=== PATIENT | female | born 1965 | race Caucasian/White ===

== ENCOUNTER 2021-12-10 15:43 | Emergency (ER) | payer OTHER, SELFPAY ==
--- NOTE | ~2021-12-10 | XR_ITS ---
EXAM: XR knee RT 3V HISTORY: PAIN COMPARISON: None available FINDINGS: Normal mineralization. Moderate bilateral medial joint space narrowing. Bilateral tricompa rtmental osteophytosis. Large left and moderate volume right knee joint effusions. No fracture or dis location. No lytic or blastic lesions. IMPRESSION: Moderate bilateral knee osteoarthritis, more severe in the left knee. Large left and moderate right k nee joint effusions. Reviewed, dictated and finalized at location K. IMPRESSION: Moderate bilateral knee osteoarthritis, more severe in the left knee. Large lef t and moderate right knee joint effusions.
--- NOTE | ~2021-12-10 | XR_ITS ---
EXAM: XR knee LT 3V HISTORY: PAIN COMPARISON: None available FINDINGS: Normal mineralization. Moderate bilateral medial joint space narrowing. Bilateral tricompa rtmental osteophytosis. Large left and moderate volume right knee joint effusions. No fracture or dis location. No lytic or blastic lesions. IMPRESSION: Moderate bilateral knee osteoarthritis, more severe in the left knee. Large left and moderate right k nee joint effusions. Reviewed, dictated and finalized at location K. IMPRESSION: Moderate bilateral knee osteoarthritis, more severe in the left knee. Large lef t and moderate right knee joint effusions.
[2021-12-10 16:07] VITALS: BP 132/90; PULSE 67; RESP 16; TEMP 36.2; O2SAT 97
--- NOTE | 2021-12-10 18:35 | ED.EXTPRO ---
HPI - Extremity Problem General Chief complaint: Extremity Problem,Nontraumatic Stated complaint: bilateral swollen knees Time Seen by Provider: 12/10/21 18:10 Source: patient Mode of arrival: ambulatory Limitations: no limitations History of Present Illness HPI Narrative: This is a 56 year old female who presents for evaluation of bilateral knee swelling. Patient reports history of arthritis. She developed left knee pain 1 week ago. Shortly after, she also developed right knee pain. She has been having swelling and pain. She reports she is extremely active and her knees are worse with movement. She denies history of gout, RA. She takes ibuprofen twice a day for years. She reports increased warmth. She denies any injury Related Data Home Medications Medication Instructions Recorded Confirmed metoprolol tartrate 12/10/21 12/10/21 Allergies Allergy/AdvReac Type Severity Reaction Status Date / Time No Known Allergies Allergy Verified 12/10/21 17:36 Review of Systems Review of Systems: All systems reviewed & are unremarkable except as noted in HPI and below PMFSH Past Medical History Medical History (Updated 12/10/21 @ 18:56 by Mary Childs MD) Chronic back pain Hypertension Peripheral neuropathy Social History Social History (Updated 12/10/21 @ 18:39 by Mary Childs MD) Smoking status: Former smoker Exam Const: General: alert Nutritional Appearance: obese Orientation/consciousness: patient oriented x3 Eyes: EOM: EOMs intact bilaterally Resp: Effort & Inspection: normal respiratory effort Skin: General skin exam: normal color Rashes: no rashes Neuro: General: patient oriented x3, moves all extremities and CN's II-XI intact bilaterally Extrem: Other: patient has FROM bilateral knee. There is mild bilateral knee swelling, no erythema; Psych: Mental Status: mental status grossly normal Affect: normal affect Course Reevaluation(s) Reevaluation #1: I discussed with patient xray shows osteoarthritis with joint effusions that are worse on the left. Unlikely septic arthritis. I offered to perform left knee arthrocentensis to evaluate fluids. She may need evaluation of some form of arthritis. Patient declined arthrocentesis because she does not want to stay any longer. Date: 12/10/21 Time: 18:40 Vital Signs Vital signs: Vital Signs Temperature 97.2 F L 12/10/21 16:07 Pulse Rate 67 04/04/22 16:07 Respiratory Rate 16 12/10/21 16:07 Blood Pressure 132/90 12/10/21 16:07 Pulse Oximetry 97 12/10/21 16:07 Temperature 97.2 F L 12/10/21 16:07 Pulse Rate 85 12/10/21 19:10 Respiratory Rate 17 12/10/21 19:10 Blood Pressure 144/86 H 12/10/21 19:10 Pulse Oximetry 97 12/10/21 19:10 MDM - Extremity (Nontraumatic) Imaging Data Attestation: I personally reviewed and interpreted this imaging study as follows: Radiologist's impression: ITS Impressions Knee X-Ray 12/10/21 17:58 IMPRESSION: Moderate bilateral knee osteoarthritis, more severe in the left knee. Large left and moderate right knee joint effusions. Knee X-Ray 12/10/21 18:03 IMPRESSION: Moderate bilateral knee osteoarthritis, more severe in the left knee. Large left and moderate right knee joint effusions. Discharge Plan Discharge Clinical Impression: Osteoarthritis of knees, bilateral Qualifiers: Osteoarthritis type: unspecified Qualified Code(s): M17.0 - Bilateral primary osteoarthritis of knee Patient Disposition: Home, Self-Care Condition: Stable Instructions: Antibiotic Form, Osteoarthritis (ED), Swollen Knee Joint (ED) Additional Instructions: You have arthritis in both knees that is causing your swelling. You should wrap both knees with lyn bandage /knee brace. Rest to allow your inflammation to resolve. Keep legs elevated when possible. Apply ice to knee to help with swelling. Follow up with your primary care physician. REtur
[2021-12-10] MEDS: KETOROLAC (*BKC) 60 MG/2 ML VIAL IM (18:49)
[2021-12-10] MEDS: ONDANSETRON HCL ODT 4 MG TABLET PO (18:49)
[2021-12-10] MEDS: HYDROcodone/acetaminophen (*CRX) 5-325 MG TABLET 1 TAB PO (18:49)
[2021-12-10 19:10] VITALS: BP 144/86; PULSE 85; RESP 17; O2SAT 97
== END 2021-12-10 19:11 | disposition home or self-care (01) ==
PROVIDERS: Emergency Provider General Practice; PCP Nurse Practitioner Family
DX: M17.0 Bilateral primary osteoarthritis of knee (principal); G89.29 Other chronic pain; I10 Essential (primary) hypertension; G62.9 Polyneuropathy, unspecified; Z87.891 Personal history of nicotine dependence
CPT/HCPCS: 73562; 96372; 99284; A9270; J1885

== ENCOUNTER 2021-12-27 17:31 | Emergency (ER) | payer OTHER, SELFPAY ==
--- NOTE | 2021-12-27 17:43 | ED.EXTPRO ---
HPI - Extremity Problem General Chief complaint: Extremity Problem,Nontraumatic Stated complaint: Swollen right Knee Time Seen by Provider: 12/27/21 17:43 Source: patient Mode of arrival: ambulatory Limitations: no limitations History of Present Illness HPI Narrative: Ms. Quinonez is a 56-year-old female patient presenting to the clinic today with complaints of right knee swelling x1 week. She was seen on the fourth in the ED for left knee swelling and had x-rays completed of both knees and it showed that she had osteoarthritis and a knee effusion to the left knee. She reports since finishing her prednisone that her right knee has been swollen and more painful. This has been going on for approximately 1 week and becoming more painful and she is not able to tolerate it any longer. She has been resting icing and taking ibuprofen for this. She reports that she is to see her PCP on the of this month however she does not feel she can make it that long due to the pain. States that her Medicare part D will not allow anyone else by her PCP to give her an orthopedic referral. Related Data Home Medications Medication Instructions Recorded Confirmed metoprolol tartrate 25 mg PO DAILY 12/10/21 12/27/21 Allergies Allergy/AdvReac Type Severity Reaction Status Date / Time No Known Allergies Allergy Verified 12/27/21 17:34 Review of Systems Review of Systems: Pertinent positives per HPI. Patient denies any fever, chills, rash, headache, visual changes, dizziness, cough, runny nose, sore throat, shortness of breath, chest pain, palpitations, nausea, vomiting, diarrhea, constipation, abdominal pain, or any urinary issues. PMFSH Past Medical History Medical History Chronic back pain Hypertension Peripheral neuropathy Social History Social History Smoking status: Former smoker Comments At the time of my signature, I reviewed and agree with the nursing past medical, surgical, social, and family history. There is no relevant family history pertinent to the patient complaint. Exam Narrative: General: Well-developed, well nourished, in no apparent distress Head: Normocephalic, atraumatic. Cardio: Regular rate and rhythm, s1 and s2 normal, no murmur appreciated. Resp: Clear to auscultation bilaterally, no rhonchi, rales, wheezing or rubs. Musculoskeletal: No deformity, tender to palpation over entire right knee joint as well as superiorly and inferiorly, has a wave appearance when tapping the knee, range of motion limited due to swelling and pain, peripheral pulse strong, no edema, no cyanosis, normal gait and station Course Course Emergency Course: Portions of this record may have been created with voice recognition software. Level of Care: Express Care Visit Vital Signs Vital signs: Vital signs reviewed Transfer Transfered to: [place] Transfer rationale: Right knee effusion Accepting physician: MALENA Kate Transfer comments: Transfer via private car. MDM - Extremity (Nontraumatic) MDM Narrative Medical decision making narrative: At the time of visit patient is resting comfortably on the exam table. She has right knee swelling and tenderness-pain is radiating to the posterior knee and down and up the leg. I suspect she has a knee effusion however I am unable to tap her knee in the clinic today to help alleviate her pain nor can I order cytology on the fluid. I discussed this with the patient and recommended that she be seen in the ED for reevaluation and a vein arthrocentesis. Patient is agreeable to be sent to the ER. MALENA Kate was notified at [place] [facility] and report was given. Discharge Plan Discharge Clinical Impression: Effusion of right knee Patient Disposition: Acute Care Hospital Condition: Stable Additional Instructions: You were evaluated by the provider
[2021-12-27 17:44] VITALS: BP 175/116; PULSE 98; RESP 16; TEMP 37.1; O2SAT 99
== END 2021-12-27 18:12 | disposition short-term general hospital (02) ==
PROVIDERS: Emergency Provider Nurse Practitioner Family; PCP Nurse Practitioner Family
DX: M25.461 Effusion, right knee (principal); I10 Essential (primary) hypertension; G62.9 Polyneuropathy, unspecified; Z87.891 Personal history of nicotine dependence; M17.12 Unilateral primary osteoarthritis, left knee
CPT/HCPCS: 99213; G0463

== ENCOUNTER 2021-12-27 18:31 | Emergency (ER) | payer OTHER, SELFPAY ==
--- NOTE | ~2021-12-27 | XR_ITS ---
EXAMINATION: XR knee RT min 4V DATE: 12/27/2021 19:04 INDICATION: Right knee pain and swelling TECHNIQUE: Four views of the right knee were obtained. COMPARISON: 12/10/2021 FINDINGS: Alignment is normal. No fracture or osteochondral lesion. There is mild tricompartmental os teoarthritis characterized by tiny marginal osteophytes. There is a large knee joint effusion. Soft t issues are unremarkable. IMPRESSION: 1. Large knee joint effusion without acute osseous abnormality. Reviewed, dictated and finalized at location F.
[2021-12-27 18:42] VITALS: BP 141/111; PULSE 86; RESP 18; TEMP 36.3; O2SAT 97
[2021-12-27 20:00] VITALS: BP 153/103; PULSE 87; RESP 22; O2SAT 97
--- NOTE | 2021-12-27 20:16 | ED.EXTPRO ---
HPI - Extremity Problem General Chief complaint: Extremity Problem,Nontraumatic Stated complaint: knee swelling Time Seen by Provider: 12/27/21 19:56 Source: patient Mode of arrival: ambulatory Limitations: no limitations History of Present Illness HPI Narrative: Patient is a 56-year-old female complaining of right knee swelling and pain that started 1 week ago. Patient states that she had a similar episode last week on her left knee, was given steroids and helped with the swelling. Patient states that she has a history of arthritis of both knees. Patient denies any injury to the knee. Patient denies any calf pain or swelling. Patient denies any right knee redness, fever or chills. Related Data Home Medications Medication Instructions Recorded Confirmed metoprolol tartrate 25 mg PO DAILY 12/10/21 12/27/21 Allergies Allergy/AdvReac Type Severity Reaction Status Date / Time No Known Allergies Allergy Verified 12/27/21 17:34 Review of Systems Review of Systems: All systems reviewed & are unremarkable except as noted in HPI and below Constitutional: Constitutional: Denies body ache(s), Denies chills, Denies excessive sweating, Denies fatigue, Denies fever(s), Denies headache(s), Denies lethargy, Denies malaise, Denies weakness and Denies weight loss Eyes: Eyes: Denies blurry vision, Denies change in vision and Denies loss of vision ENT: Denies dizziness, Denies ear discharge, Denies headache(s), Denies lip swelling, Denies epistaxis, Denies nasal congestion, Denies neck pain, Denies throat swelling and Denies tongue swelling Cardiovascular: Cardiovascular: Denies chest pain, Denies chest pain at rest, Denies chest pain with activity, Denies diaphoresis, Denies rapid heart rate, Denies edema, Denies irregular heart rhythm, Denies lightheadedness, Denies palpitations, Denies dyspnea and Denies dyspnea on exertion Respiratory: Respiratory: Denies chest congestion, Denies cough, Denies hemoptysis, Denies dyspnea and Denies dyspnea on exertion Gastrointestinal: Gastrointestinal: Denies abdominal pain, Denies melena, Denies hematochezia, Denies diarrhea, Denies nausea, Denies vomiting and Denies hematemesis Musculoskeletal: Musculoskeletal: Denies abnormal gait, Denies deformity, Denies limited range of motion, Denies neck pain and Denies numbness Neurologic: Denies Abnormal speech present, Denies abnormal gait, Denies confusion, Denies dizziness, Denies headache(s), Denies focal weakness, Denies loss of vision, Denies numbness, Denies Other visual disturbances, Denies Sensory deficit (Neuro) and Denies weakness Psychiatric: Psychiatric: Denies confusion, Denies depression, Denies auditory hallucinations, Denies homicidal ideation and Denies suicidal ideation Endocrine: Endocrine: Denies cold intolerance, Denies excessive sweating, Denies fatigue, Denies heat intolerance and Denies palpitations Hematologic/Lymphatic: Hematologic/Lymphatic: Denies easy bleeding and Denies easy bruising Allergic/Immunologic: Allergic/Immunologic: Denies lip swelling, Denies throat swelling and Denies tongue swelling PMFSH Past Medical History Medical History Chronic back pain Hypertension Peripheral neuropathy Social History Social History Smoking status: Former smoker Exam Const: General: cooperative, comfortable, no acute distress, well developed, alert and awake; No confusion Nutritional Appearance: obese Orientation/consciousness: oriented to person, oriented to place, oriented to time, patient oriented x3 and No confusion Limitations: no limitations HENMT: Head: normal to inspection, normocephalic and atraumatic Ears: hearing grossly normal bilaterally, TM normal on the right and TM normal on the left General nose exam: Normal external nose present, Normal nares present and No nasal discharge present Face and sinus: n
[2021-12-27] MEDS: HYDROcodone/acetaminophen (*CRX) 5-325 MG TABLET 1 TAB PO (22:44)
[2021-12-27] MEDS: KETOROLAC 30 MG/ML VIAL (*BKC) IM (22:44)
[2021-12-27 23:59] LABS: Source Synovial Fluid Synovial fluid
[2021-12-28] LABS: Appearance Synovial Fluid Clear (Clear); Color Synovial Fluid Yellow (Colorless)
[2021-12-28 00:01] LABS: Lymphocytes Synovial Fluid 4 %; Macrophages Synovial Fluid 46 %; Monocytes Synovial Fluid 26 %; Neutrophils Synovial Fluid 24 % (0-25)
[2021-12-28 00:11] VITALS: BP 156/93; PULSE 86; RESP 19; O2SAT 97
== END 2021-12-28 00:13 | disposition home or self-care (01) ==
PROVIDERS: Emergency Provider Emergency Medicine; PCP Nurse Practitioner Family
DX: M25.461 Effusion, right knee (principal); I10 Essential (primary) hypertension
CPT/HCPCS: 20610; 73564; 87070; 87075; 87205; 89051; 96372; 99283; A9270; J1885

== ENCOUNTER → 2022-04-03 12:29 | Outpatient (CLI) | payer SELFPAY ==
--- NOTE | ~2022-04-03 | MR_ITS ---
EXAMINATION: MR knee RT wo con DATE: 04/03/2022 13:54 INDICATION: Anterior right knee pain TECHNIQUE: Magnetic resonance imaging (MRI) of the right knee was performed without intravenous contr ast. Sequences included axial PD-weighted FS FSE, coronal PD-weighted FSE and PD-weighted FS FSE, sag ittal PD-weighted FSE, and sagittal T2-weighted FS FSE. COMPARISON: X-ray 12/27/2021 FINDINGS: Medial compartment: Apical and oblique undersurface tears of the body, medial meniscus. Medial meniscal displacement. Par rot beak type tear of the posterior horn, medial meniscus, with displacement of the flap. Large area of full-thickness cartilage loss on the weightbearing medial condyle. Moderate osteophytosis. Lateral compartment: Apical tear of the posterior horn, lateral meniscus. Moderate diffuse thinning of cartilage. Mild ost eophytosis. Patellofemoral compartment: Mild diffuse cartilage thinning. Full-thickness focal cartilage defect over the median ridge. Retinac guy intact. Ligaments and tendons: Full-thickness ACL tear. PCL, MCL and LCL are intact. Flexor and extensor tendons are intact. Fluid: Moderate volume joint fluid. Osseous/other: Unremarkable marrow signal. IMPRESSION: 1. Tears of the posterior horn and body of the medial meniscus. 2. Apical tear of the lateral meniscus. 3. Full-thickness ACL tear. 4. Moderate joint effusion. 5. Mild chondromalacia patella. Reviewed, dictated and finalized at location K.
--- NOTE | ~2022-04-03 | MR_ITS ---
EXAMINATION: MR knee LT wo con DATE: 04/03/2022 13:56 INDICATION: Anterior left knee pain TECHNIQUE: Magnetic resonance imaging (MRI) of the left knee was performed without intravenous contra st. Sequences included axial PD-weighted FS FSE, coronal PD-weighted FSE and PD-weighted FS FSE, sagi ttal PD-weighted FSE, and sagittal T2-weighted FS FSE. COMPARISON: X-ray left knee 12/10/2021. FINDINGS: Medial compartment: Focal apical tear of the meniscal body. Diffuse cartilage thinning with a 5-6 mm area of full-thickne ss cartilage loss on the medial condyle. Moderate osteophytosis. Lateral compartment: Meniscus intact. Mild diffuse cartilage thinning. Moderate osteophytosis. Patellofemoral compartment: Full-thickness cartilage signal abnormality in the femoral groove. Patellar cartilage is intact. Mild osteophytosis. Retinacula are intact. Ligaments and tendons: ACL, PCL, MCL, and LCL are intact. Abnormal signal deep to the insertion of the pes anserine tendons. Remaining flexor and extensor tendons are intact. Fluid: Moderate volume joint fluid. Osseous/other: Unremarkable marrow signal. IMPRESSION: 1. Apical tear, medial meniscus. 2. Pes anserine bursitis. 3. Tricompartmental osteoarthritis. 4. Focal full-thickness cartilage loss on the medial condyle. 5. Large joint effusion. Reviewed, dictated and finalized at location K.
== END ==
PROVIDERS: Visit Provider Orthopaedic Surgery
DX: M25.562 Pain in left knee (principal); M25.561 Pain in right knee; S83.222A Peripheral tear of medial meniscus, current injury, left knee, initial encounter; M70.52 Other bursitis of knee, left knee; M17.12 Unilateral primary osteoarthritis, left knee; M25.462 Effusion, left knee; S83.8X2A Sprain of other specified parts of left knee, initial encounter; S83.241A Other tear of medial meniscus, current injury, right knee, initial encounter; S83.281A Other tear of lateral meniscus, current injury, right knee, initial encounter; S83.511A Sprain of anterior cruciate ligament of right knee, initial encounter; M25.461 Effusion, right knee; M94.261 Chondromalacia, right knee
CPT/HCPCS: 99199; 73721

== ENCOUNTER 2023-08-16 10:45 | Emergency (ER) | payer MEDICARE, MEDICAID, SELFPAY ==
[2023-08-16 10:57] VITALS: BP 149/85; PULSE 90; RESP 16; TEMP 36.2; O2SAT 96
--- NOTE | 2023-08-16 11:02 | ED.URI ---
HPI - URI/Sore Throat General Chief Complaint: Upper Respiratory Infection Stated Complaint: Bodyaches/Cough Time Seen by Provider: 08/16/23 11:00 Source: patient Mode of arrival: ambulatory Limitations: no limitations History of Present Illness HPI Narrative: Abby is a 58-year-old female patient presenting to the clinic today with complaints of cough, nasal congestion, body aches, fever, and chills x2 days. States highest fever was 103. MD elicited complaint: fever, cough, nasal congestion and other (Chills and body aches) Related Data Allergies Allergy/AdvReac Type Severity Reaction Status Date / Time No Known Allergies Allergy Verified 08/16/23 10:52 Review of Systems Review of Systems: Pertinent positives per HPI. Patient denies any fever, chills, rash, headache, visual changes, dizziness, cough, shortness of breath, chest pain, palpitations, nausea, vomiting, diarrhea, constipation, abdominal pain, or any urinary issues. PMFSH Past Medical History Medical History Chronic back pain Hypertension Peripheral neuropathy Surgical History Surgical History History of Family History Family History Other Diabetes mellitus Family history of cancer Heart disease Hypertension Social History Social History Smoking status: Former smoker Alcohol intake: never Substance use: never Living arrangements: alone Occupation/Education: unemployed Gender identity (if verbalized by the patient): Female Comments At the time of my signature, I reviewed and agree with the nursing past medical, surgical, social, and family history. There is no relevant family history pertinent to the patient complaint. Exam Narrative: General: Well-developed, well nourished, in no apparent distress Head: Normocephalic, atraumatic Eyes: Pupils equally round and reactive to light bilaterally, EOM intact, sclera and conjunctive clear, no discharge, lids normal Ears: TMs intact and clear, ear canals clear, no drainage, grossly hearing normal. Nose: Nares patent, clear nasal discharge, no inflammation, no sinus tenderness. Mouth: Oral pharynx without lesions or masses, good dentition, MMM. Neck: Supple, trachea midline, no enlargement of anterior or posterior cervical nodes, no thyroid masses or goiter palpable. Cardio: Regular rate and rhythm, s1 and s2 normal, no murmur appreciated. Resp: Faint expiratory wheeze over the right posterior middle lobe, no rhonchi, rales, wheezing or rubs Course Course Emergency Course: Portions of this record may have been created with voice recognition software. Level of Care: Express Care Visit Vital Signs Vital signs: Vital Signs Temperature 36.2 C L 08/16/23 10:57 Pulse Rate 90 08/16/23 10:57 Respiratory Rate 16 08/16/23 10:57 Blood Pressure 149/85 H 08/16/23 10:57 Pulse Oximetry 96 08/16/23 10:57 Oxygen Delivery Room Air 08/16/23 10:57 Temperature 36.2 C L 08/16/23 10:57 Pulse Rate 90 08/16/23 10:57 Respiratory Rate 16 08/16/23 10:57 Blood Pressure 149/85 H 08/16/23 10:57 Pulse Oximetry 96 08/16/23 10:57 Oxygen Delivery Room Air 08/16/23 10:57 Vital signs reviewed MDM - URI/Sore Throat MDM Narrative Medical decision making narrative: At the time of visit patient is resting comfortably on the exam table. Patient appears to be nontoxic. Influenza and COVID testing was performed. Influenza a was positive. Will send in prescription for Tamiflu. Supportive measures were discussed with the patient and they voiced understanding discharge instructions and agrees to treatment plan. Return precautions reviewed Differential Diagnosis Differential diagnosis: Likely upper respiratory infection, ot
== END 2023-08-16 11:10 | disposition home or self-care (01) ==
PROVIDERS: Emergency Provider Nurse Practitioner Family
DX: J10.1 Influenza due to other identified influenza virus with other respiratory manifestations (principal); Z20.822 Contact with and (suspected) exposure to COVID-19; Z87.891 Personal history of nicotine dependence; I10 Essential (primary) hypertension; G62.9 Polyneuropathy, unspecified
CPT/HCPCS: 87426; 87804; 99213; C9803; G0463

== ENCOUNTER 2023-12-01 16:33 | Emergency (ER) | payer MEDICARE, MEDICAID, SELFPAY ==
--- NOTE | 2023-12-01 16:51 | ED.GENADULT ---
HPI - General Adult General Chief complaint: Dizziness Stated complaint: Dizziness/Weakness/Fatigue Time Seen by Provider: 12/01/23 16:56 Mode of arrival: ambulatory Limitations: no limitations History of Present Illness HPI narrative: 58-year-old female presents concern for dizziness, nausea, fatigue, shortness of breath with exertion that happened suddenly today while she was shopping. She reports she thought her blood sugar might be low so she ate something which did not improve her symptoms that did cause her to have midsternal chest pain briefly. She reports she is currently not having chest pain. She is feeling clammy. She reports history of heavy smoking. MD complaint: Dizziness Related Data Home Medications Medication Instructions Recorded Confirmed fluticasone propionate 50 1 spray intranasal DAILY 12/01/23 12/01/23 mcg/actuation nasal spray,suspension hydroxyzine HCl 50 mg tablet 50 mg PO PRN 12/01/23 12/01/23 ibuprofen 800 mg tablet 800 mg PO TID 12/01/23 12/01/23 metoprolol tartrate 25 mg tablet 25 mg PO BID 12/01/23 12/01/23 Allergies Allergy/AdvReac Type Severity Reaction Status Date / Time No Known Allergies Allergy Verified 12/01/23 17:03 Review of Systems Review of Systems: CONSTITUTIONAL: Reports malaise, fatigue. Denies chills, sweats, or fever. EYES: Denies visual changes ENT: Denies rhinorrhea, congestion, sinus pain, otalgia or sore throat. CARDIOVASCULAR: Reports 1 episode of chest pain. Denies palpitations or edema. RESPIRATORY: Denies cough. Reports exertion dyspnea. GASTROINTESTINAL: Denies abdominal pain, vomiting, diarrhea, bloody, or mucous stools. Reports nausea GENITOURINARY: Denies dysuria or hematuria. SKIN: Denies rash or itching. MUSCULOSKELETAL: Denies back pain, joint pain, or myalgia. NEUROLOGIC: Reports dizziness. Denies headache. All systems reviewed & are unremarkable except as noted in HPI and below PMFSH Past Medical History Medical History Chronic back pain Hypertension Peripheral neuropathy Surgical History Surgical History History of Family History Family History Other Diabetes mellitus Family history of cancer Heart disease Hypertension Social History Social History Smoking status: Former smoker Alcohol intake: never Substance use: never Living arrangements: alone Occupation/Education: unemployed Gender identity (if verbalized by the patient): Female Comments At time of signature, agree with nursing past medical, surgical, social and family history. There is no relevant family history pertinent to the presenting complaint Exam Narrative: GENERAL: Nontoxic-appearing and in no acute distress. HEAD: Normocephalic, atraumatic. EYES: PERRLA, sclera clear, and EOMI. No nystagmus. ENT: Nares clear, turbinates pink, no rhinorrhea or epistaxis. Mucous membranes moist. TM pearly nelson with sharp light reflex bilaterally; no tragal tenderness. Oropharynx without erythema or lesions. Tonsils not enlarged and without exudate. NECK: Supple. CHEST: No respiratory distress. Clear to auscultation. No bony deformities, no asymmetry. Speaks in full sentences. HEART: Slow rate and regular rhythm. No murmur heard. Normal peripheral pulses. SKIN: Warm, dry, no visible rash. NEURO: Alert and oriented x3. No focal deficits. Cranial nerves II through XII grossly intact PSYCH: Normal mood and affect Course Course Emergency Course: Patient is aware of, understands and agrees to be seen in the emergency room. Patient agrees to EMS transfer Portions of this record may have been created with voice recognition software Level of Care: Express Care Visit Vital Signs Vital signs: Reviewed. Transfer
--- NOTE | 2023-12-01 16:52 | ECG_ITS ---
Measurements Intervals [place] Rate: 58 P: 20 HI: 170 QRS: 15 QRSD: 91 T: 36 QT: 419 QTc: 414 Interpretive Statements SINUS BRADYCARDIA CANNOT RULE OUT SEPTAL INFARCT, AGE INDETERMINATE CONSIDER INFERIOR INFARCT, AGE INDETERMINATE BASELINE ARTIFACT- V4-V6 ABNORMAL ECG COMPARED TO ECG 04/18/2019 20:10:07 SINUS BRADYCARDIA NOW PRESENT Electronically Signed On 12-01-2023 17:05:15 CDT by Roscoe Link D.O.
[2023-12-01 16:58] VITALS: BP 147/76; PULSE 61; RESP 23; TEMP 36.6; O2SAT 97
[2023-12-01 17:02] LABS: Glucose Point of Care 131 mg/dl (65-105)
[2023-12-01 17:35] VITALS: PULSE 54; RESP 20; O2SAT 99
--- NOTE | 2023-12-01 17:43 | PC.NURSE ---
1728: CALL TO 911 FOR TRANSPORT TO [facility] FOR FURTHER EVALUATION.
== END 2023-12-01 17:35 | disposition short-term general hospital (02) ==
LOC: EXPCOLL 16:38
PROVIDERS: Emergency Provider Nurse Practitioner; PCP Nurse Practitioner Family
DX: R42 Dizziness and giddiness (principal); R94.31 Abnormal electrocardiogram [ECG] [EKG]; Z87.891 Personal history of nicotine dependence; I10 Essential (primary) hypertension; G62.9 Polyneuropathy, unspecified
CPT/HCPCS: 82948; 93005; 99215; G0463

== ENCOUNTER 2025-07-22 11:48 | Emergency (ER) | payer MEDICARE, MEDICAID, SELFPAY ==
--- NOTE | 2025-07-22 11:51 | ED.URI ---
HPI - URI/Sore Throat General Chief Complaint: Upper Respiratory Infection Stated Complaint: ear pain/sore throat Time Seen by Provider: 07/22/25 11:51 Source: patient Mode of arrival: ambulatory Limitations: no limitations History of Present Illness HPI Narrative: Patricia is a 60 year old male patient presenting to the clinic today with c/o ear pain, nasal congestion, and sore throat x 4 days. She reports had mild fever of 100F at the beginning of her illness. No chest pain or shortness of breath. No known sick contacts. Related Data Home Medications ?Medication ?Instructions ?Recorded ?Confirmed ?Last Taken ?Type fluticasone propionate 50 1 spray intranasal DAILY 12/01/23 07/22/25 Unknown History mcg/actuation nasal spray,suspension hydroxyzine HCl 50 mg tablet 50 mg PO PRN 12/01/23 07/22/25 Unknown History ibuprofen 800 mg tablet 800 mg PO TID 12/01/23 07/22/25 Unknown History metoprolol tartrate 25 mg tablet 25 mg PO BID 12/01/23 07/22/25 Unknown History Allergies Allergy/AdvReac Type Severity Reaction Status Date / Time No Known Allergies Allergy Verified 07/22/25 11:51 Review of Systems Review of Systems: Pertinent positives per HPI. Patient denies any rash, headache, visual changes, dizziness, shortness of breath, chest pain, palpitations, nausea, vomiting, diarrhea, constipation, abdominal pain, or any urinary issues. [facility] Past Medical History Medical History Chronic back pain Peripheral neuropathy Hypertension Surgical History Surgical History History of Family History Family History Other Diabetes mellitus Family history of cancer Heart disease Hypertension Social History Social History Smoking status: Former smoker Alcohol intake: never Substance use: never Living arrangements: alone Occupation/Education: unemployed Gender identity (if verbalized by the patient): Female Comments At the time of my signature, I reviewed and agree with the nursing past medical, surgical, social, and family history. There is no relevant family history pertinent to the patient complaint. Exam Narrative: General: Well-developed, obese, in no apparent distress Head: Normocephalic, atraumatic Eyes: Pupils equally round and reactive to light bilaterally, EOM intact, sclera and conjunctive clear, no discharge, lids normal Ears: TMs intact and congested, ear canals clear, no drainage, grossly hearing normal. Nose: Nares patent, clear nasal discharge, no inflammation, no sinus tenderness. Mouth: Oropharynx red without lesions or masses, good dentition, MMM. Neck: Supple, trachea midline, enlargement of anterior cervical nodes, no thyroid masses or goiter palpable. Cardio: Regular rate and rhythm, s1 and s2 normal, no murmur appreciated. Resp: Clear to auscultation bilaterally anteriorly and posteriorly, no rhonchi, rales, wheezing or rubs Course Course Emergency Course: Portions of this record may have been created with voice recognition software. Level of Care: Express Care Visit Vital Signs Vital signs: Vital Signs Temperature 36.3 C L 07/22/25 12:02 Pulse Rate 54 L 07/22/25 12:02 Respiratory Rate 16 07/22/25 12:02 Blood Pressure 140/85 07/22/25 12:02 Pulse Oximetry 99 07/22/25 12:02 Oxygen Delivery Room Air 07/22/25 12:02 Temperature 36.3 C L 07/22/25 12:02 Pulse Rate 54 L 07/22/25 12:02 Respiratory Rate 16 07/22/25 12:02 Blood Pressure 140/85 07/22/25 12:02 Pulse Oximetry 99 07/22/25 12:02 Oxygen Delivery Room Air 07/22/25 12:02 Vital signs reviewed MDM - URI/Sore Throat MDM Narrative Medical decision making narrative: At the time of visit patient is resting comfortably on the exam table. Patient appears to be nontoxic. C/o ear pain, nasal congestion, and sore throat x 4 days. She reports had mild fever of 100F at the beginning of her illness. No chest pain or shortness of breath. No known sick contacts. On exam patient has bilateral TMs intact and congested, clear nasal drainage, mild anterior turbinate inflammation, oral pharynx red, mild enlargement of anterior cervical lymph nodes, lung sounds are clear, heart rates regular rate and rhythm. Strep test was ordered. Offered COVID and influenza testing and patient declined. Labs: Strep test was performed and negative in the clinic today. Plan: I suspect patient has URI/pharyngitis/otalgia. Supportive measures were discussed with the patient and they voiced understanding discharge instructions and agrees to treatment plan. Return precautions reviewed Differential Diagnosis Differential diagnosis: Likely upper respiratory infection, otitis media, sinusitis, viral infection, bronchitis, influenza, pharyngitis and other (COVID) Lab Data Labs: Lab Results 07/22/25 Range/Units 11:58 POC Grp A Strep Screen Negative (Negative) Discharge Plan Discharge Clinical Impression: Upper respiratory infection, Pharyngitis, Acute otalgia Patient Disposition: Home Condition: Stable Instructions: Antibiotic Form, Pharyngitis (ED), Earache (ED), Cold Symptoms (ED) Additional Instructions: Strep test was negative in the clinic today. We will send strep for culture. If this comes back positive we will contact him place you on antibiotics at that time. Increase fluids and stay well hydrated May take Tylenol or motrin as directed on bottle for pain/fever May use Flonase 1 spray in each nare daily May take OTC antihistamines such as Zyrtec or Claritin daily as directed on bottle May apply Vicks vapor rub to chest to open sinuses Sinus rinses for congestion Cepacol spray, cough drops, throat lozenges, warm tea with honey/lemon, gargle salt water to soothe throat BRAT diet for diarrhea Clear liquids x 24 hours then advance as tolerated for nausea/vomiting Go to the ED if you develop a worsening in your condition- high fever not controlled by Tylenol or Motrin, dehydration, weakness, lethargy, shortness of breath, or chest pain. Follow up with your PCP in 3-5 days if symptoms persist. Patient Language: Occitan Prescriptions: No Action ibuprofen 800 mg tablet 800 mg PO TID hydroxyzine HCl 50 mg tablet 50 mg PO PRN fluticasone propionate 50 mcg/actuation spray,suspension 1 spray INTRANASAL DAILY metoprolol tartrate 25 mg tablet 25 mg PO BID Follow-up/Referrals: UNKNOWN,DOCTOR [Non-Staff] Stand Alone Forms: Work/School Release IP Time of Disposition: 12:15 Quality NIHSS Nursing Documentation ED NIHSS nursing documentation: reviewed/agree
[2025-07-22 12:02] VITALS: BP 140/85; PULSE 54; RESP 16; TEMP 36.3; O2SAT 99
[2025-07-22 12:13] LABS: EDSTREPNEGPOS1 Negative (Negative)
== END 2025-07-22 12:19 | disposition home or self-care (01) ==
LOC: EXPCOLL 11:54
PROVIDERS: Emergency Provider Nurse Practitioner Family
DX: J06.9 Acute upper respiratory infection, unspecified (principal); J02.9 Acute pharyngitis, unspecified; H92.03 Otalgia, bilateral; Z87.891 Personal history of nicotine dependence; I10 Essential (primary) hypertension; G62.9 Polyneuropathy, unspecified
CPT/HCPCS: 87081; 87880; 99213; G0463